=== PATIENT | female | born 1950 | race Caucasian/White ===

== ENCOUNTER 2022-10-28 15:53 | Emergency (ER) | payer OTHER ==
--- OUTSIDE RECORDS SUMMARY | 2022-10-28 15:58 | XMS REPORT | Continuity of Care Document ---
:1950 Author Organization [facility] t Address [address] [place] [address] [address] [place] [address] Care Team Providers Name Role Phone SANJANA HDEZ Primary Care Physician Unavailable CAIO JEFF Attending Clinician Unavailable JOHNSON VILLALPANDO Attending Clinician Unavailable Radiology Attending Clinician Unavailable RADIOLOGY Attending Clinician Unavailable Sanjana Hdez Attending Clinician Doctor Unassigned, [place] Attending Clinician Unavailable NOEMY BROOKE Attending Clinician Unavailable SANJANA HDEZ Admitting Clinician Unavailable THOMAS VILLALOBOS Admitting Clinician Unavailable Payers Payer Name Policy Type Policy Number Effective Date Expiration Date Melina hays [employer] MANAGED [id number] 2022 MEDICARE PPO-JACQUELINE 00:00:00 MEDICARE PART A [id number] 2014 \T\ B 00:00:00 [employer] INDEMNITY [id number] 2014 00:00:00 Problems This patient has no known problems. Allergies, Adverse Reactions, Alerts Allergy Allergy Status Severity Reaction(s) Onset Inactive Treating Comm ents Source Name Type Date Date Clinician NO KNOWN Drug Active Univers ALLERGIE Class [facility] [place] [facility] Social History Social Habit Start Date Stop Date Quantity Comments Source Exposure to 2022-05-29 2022-06-[address] [facility] SARS-CoV-2 (event) 00:00:00 14:32:00 Medica l Branch Sex Assigned At [birth year] [facility] 00:00:00 00:00:00 Medical Branch Smoking Status Start Date Stop Date Source Tobacco smoking consumption [facility] [place] [facility] unknown Branch Medications This patient has no known medications. Procedures Procedure Date / Time Performing Clinician Source Performed CT LOW DOSE LUNG NODULE 2022-06-06 17:30:57 Fredi Gar [facility] BI ULTRASOUND BREAST 2022-04-18 21:03:18 Adeel Burkett [facility] LIMITED RIGHT Medical Branch BI DIAGNOSTIC 2022-04-18 20:43:00 Madelaine Adeel [place] o [facility] TOMOSYNTHESIS RIGHT Medical Bran ch DEXA AXIAL (HIP AND SPINE) 2022-02-11 20:38:00 Requisition, Ruslan r [facility] CONSENT/REFUSAL FOR 2022-02-11 20:03:12 Doctor Juancarlos [facility] DIAGNOSIS AND TREATMENT [place] [facility] CT LUNG CANCER SCREENING 2021-06-18 17:16:25 Requisition, Paper [facility] NO SHOW OR MISSED 2021-06-18 16:21:55 Doctor Juancarlos, [facility] APPOINTMENT POLICY [place] [facility] h ACKNOWLEDGEMENT [facility] PATIENT FINANCIAL 2021-06-18 16:21:31 Doctor Unassnereida, [facility] POLICY [place] [facility] NOTICE OF BILLING 2021-06-18 16:21:07 Doctor Juancarlos, [facility] PRACTICES FOR MEDICARE [place] [facility] ranch PATIENTS NOTICE OF PRIVACY 2021-06-18 16:20:45 Doctor Juancarlos, [facility] PRACTICES [place] [facility] CONSENT/REFUSAL FOR 2021-06-18 16:20:28 Doctor Juancarlos, [facility] DIAGNOSIS AND TREATMENT [place] [facility] ASSIGNMENT OF BENEFITS 2021-06-18 16:20:08 Doctor Unassnereida, [facility] [place] [facility] Encounters Start End Encounter Admission Attending Care Care Encounter Source Date/Time Date/Time Type Type Clinicians Facility Department ID 2022-11-17 2022-11-17 Outpatient Annemarie VILLALPANDO [facility] [id number] 208 [facility] 10:00:00 10:00:00 JOHNSON bustamante o f [facility] 2022-10-13 2022-10-13 Hospital Radiology [facility] [id number] Univers 13:53:39 23:59:00 Encounter HE[place] [id number] [id number] [id number] [facility] [address] ([facility]) 2022-10-13 2022-10-13 Outpatient R RADIOLOGY [facility] [id number] Univers 13:53:39 23:59:00 ity of [facility] 2022-06-12 2022-06-12 Outpatient R RADIOLOGY [facility] [id number] Univers 09:27:19 23:59:00 ity of [facility] 2022-06-12 2022-06-12 Hospital Radiology [facility] [id number] [id number] Univers 09:27:19 23:59:00 Encounter SPECIALTY [id number] [id number] [id number] [place] edelmira [address] 2022-06-06 2022-06-06 Outpatient R RADIOLOGY [facility] [id number] Univers 11:04:33 23:59:00 ity of [facility] 2022-06-06 2022-06-06 Hospital Radiology [facility] 1.2.840.114 [id number] Univers 11:04:33 23:59:00 Encounter SPECIALTY [id number] [id number] [id number] [place] ed[place] [address] 2022-05-31 2022-05-31 Outpatient R RADIOLOGY [facility] [id number] Univers 00:00:00 00:00:00 ity of [facility] 2022-05-20 2022-05-20 Telephone DEMETRIO Hdez [id number] Univers 00:00:00 00:00:00 Sanjana SPARKS [id number] [id number] [id number] [place] [address] Branch 2022-05-17 2022-05-17 Outpatient R RADIOLOGY [facility] [id number] Univers 00:00:00 00:00:00 ity of [facility] 2022-04-18 2022-04-18 Hospital Radiology [facility] [id number] Univers 14:02:44 23:59:00 Encounter SPECIALTY [id number] ity of CARE [id number] [facility] AT [id number] Nj edelmira [address] [place] 2022-04-18 2022-04-18 Outpatient R RADIOLOGY [facility] [id number] Univers 14:02:27 23:59:00 ity of [facility] 2022-04-18 2022-04-18 [facility] Radiology [facility] [id number] Univers 14:02:27 23:59:00 Encounter SPECIALTY [id number] ity of CARE [id number] [facility] AT [id number] Nj edelmira Anderson [facility] 2022-03-01 2022-03-01 Outpatient R RADIOLOGY [facility] RAD [id number] Univers 08:25:07 23:59:00 ity of [facility] 2022-03-01 2022-03-01 [facility] Radiology [facility] [id number] Univers 08:25:07 23:59:00 Encounter [place] [id number] ity of [place] 4.2.7.2.686 [facility] [id number] [facility] [address] [place] 2022-02-11 2022-02-11 Outpatient R RADIOLOGY [facility] [id number] Univers 15:04:31 23:59:00 ity of [facility] 2022-02-11 2022-02-11 Hospital Radiology [facility] [id number] [id number] Univers 15:04:31 23:59:00 Encounter [place] [id number] ity of [place] 4.2.7.2.686 [facility] [id number] [facility] [address] [place] 2022-02-11 2022-02-11 Orders Doctor FATIMA [id number] [id number] Univers 00:00:00 00:00:00 Only Unassigned, [place]OW[place] [id number] ity of [place] [facility] 4.2.7.2.686 Kumar [id number] [address] 2021-12-13 2021-12-13 Outpatient R RADIOLOGY [facility] [id number] Univers 08:11:05 23:59:00 ity of [facility] 2021-12-13 2021-12-13 [facility] Radiology [facility] 1.2.840.114 [id number] Univers 08:11:05 23:59:00 Encounter [place] [id number] [facility] 4.2.7.2.686 [facility] [id number] [place] [address] Branch 2021-11-11 2021-11-11 Outpatient EDWARDO, [address] 06:28:00 09:40:00 NOEMY 2021-06-18 2021-06-18 Outpatient R RADIOLOGY [facility] [id number] Univers 10:28:13 23:59:00 ity of [facility] 2021-06-18 2021-06-18 [facility] Radiology [facility] 1.2.840.114 [id number] Univers 10:28:13 23:59:00 Encounter [place] [id number] [facility] 4.2.7.2.686 [facility] [id number] [address] Results This patient has no known results.
--- NOTE | 2022-10-28 16:40 | RAD REPORT ---
EXAM DESCRIPTION: RAD - Shoulder Right 2 View - 10/28/2022 4:30 pm CLINICAL HISTORY: Right shoulder pain FINDINGS: No fracture or dislocation is seen. Moderate osteoarthritis AC joint. Mild osteoarthritis glenohumeral joint
--- NOTE | 2022-10-28 16:46 | ER ---
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 Coronavirus screen: At bp this time, the client does not indicate any symptoms associated with coronavirus-19. Ebola Screen: No symptoms or risks identified at this time. Initial Sepsis Screen: Does the patient meet any 2 criteria? No. Patient's initial sepsis screen is negative. Does the patient have a suspected source of infection? No. Patient's initial sepsis screen is negative. Risk Assessment: Do you want to hurt yourself or someone else? Patient reports no desire to harm self or others. Onset of symptoms was October 28, 2022 at 15:00. 16:01 Method Of Arrival: Ambulatory bp 16:01 Acuity: NELSY 3 bp Triage Assessment: 16:03 General: Appears in no apparent distress. Behavior is calm, cooperative, appropriate bp for age. Pain: Complains of pain in anterior aspect of right shoulder. EENT: No deficits noted. Neuro: No deficits noted. Cardiovascular: No deficits noted. Respiratory: No deficits noted. GI: No signs and/or symptoms were reported involving the gastrointestinal system. : No signs and/or symptoms were reported regarding the genitourinary system. Derm: No deficits noted. Musculoskeletal: Reports pain in right shoulder and anterior aspect of right shoulder. Injury Description: Deformity sustained to right shoulder. 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 - Social history:: Smoking status: Patient denies any tobacco usage or history of. Screenin:05 [facility] ED Fall Risk Assessment (Adult) History of falling in the last 3 months, bp including since admission No falls in past 3 months (0 pts). Abuse screen: Denies threats or abuse. Denies injuries from another. Nutritional screening: No deficits noted. Tuberculosis screening: No symptoms or risk factors identified. Vital Signs: 16:01 BP 134 / 47; Pulse 63; Resp 16; Temp 98; Pulse Ox 98% ; bp ED Course: 15:56 Patient arrived in ED. rg4 15:56 Latoya Choi FNP-C is [facility]. kb 15:56 Nain Taylor DO is Attending Physician. kb 16:03 Triage completed. bp 16:03 Arm band placed on. bp 16:05 Patient has correct armband on for positive identification. bp 16:09 Brandon Yan, RN is Primary Nurse. bp 16:31 Shoulder Right (2 View) XRAY In Process Unspecified. EDMS 16:45 Patrick Garcia MD is Referral Physician. kb 17:02 No provider procedures requiring assistance completed. Patient did not have IV access ld1 during this emergency room visit. Administered Medications: No medications were administered Medication: 17:03 VIS not applicable for this client. ld1 Outcome: 16:46 Discharge ordered by MD. kb 17:02 Discharged to home ambulatory. ld1 17:02 Condition: stable 17:02 Discharge instructions given to patient, Instructed on discharge instructions, follow up and referral plans. Demonstrated understanding of instructions, follow-up care. 17:03 Patient left the ED. ld1 Signatures: Dispatcher [employer] EDMN Latoya Choi FNP-C FNP-Leana Keenan rg4 Brandon Yan, RN RN bp Arlette Taylor, DANAY RN ld1
--- NOTE | 2022-10-28 16:46 | EDPHYS ---
Physician Documentation [facility] Name: Bryanna Flores Age: 72 yrs Sex: Female : 1950 Arrival Date: 10/28/2022 Time: 15:53 Bed 4 Private MD: ED Physician Nain Taylor HPI: 10/28 16:03 This 72 yrs old Female presents to ER via Ambulatory with complaints of Shoulder Injury.kb 16:03 The patient or guardian complains of decreased range of motion, pain, tenderness. right kb shoulder. Context: The problem was sustained at home, The patient experiences decreased range of motion, The patient reports no obvious deformity. Onset: The symptoms/episode began/occurred 1 hour(s) ago. Modifying factors: the symptoms are alleviated by nothing. The symptoms are aggravated by movement. Associated signs and symptoms: The patient has no apparent associated signs or symptoms. Severity of symptoms: At their worst the symptoms were moderate, in the emergency department the symptoms are unchanged. 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 The patient has not experienced similar symptoms in the past. The patient has not recently seen a physician. 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 States she had her kb reduce it, but is concerned about a fracture.. 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 - Social history:: Smoking status: Patient denies any tobacco usage or history of. ROS: 16:02 Constitutional: Negative for fever, chills, and weight loss. kb 16:02 MS/extremity: Positive for decreased range of motion, pain, tenderness, of the anterior aspect of right shoulder. 16:02 All other systems are negative. Exam: 16:02 Constitutional: This is a well developed, well nourished patient who is awake, alert, kb and in no acute distress. Head/Face: Normocephalic, atraumatic. ENT: Moist Mucous membranes Cardiovascular: Regular rate and rhythm with a normal S1 and S2. No gallops, murmurs, or rubs. No pulse deficits. Respiratory: Respirations even and unlabored. No increased work of breathing. Talking in full sentences Abdomen/GI: Soft, non-tender. No distention Skin: Warm, dry with normal turgor. Normal color. Neuro: Awake and alert, GCS 15, oriented to person, place, time, and situation. Moves all extremities. Normal gait. 16:02 Musculoskeletal/extremity: Extremities: grossly normal except: noted in the anterior aspect of right shoulder: decreased ROM, pain, swelling, tenderness, ROM: limited active range of motion, Circulation is intact in all extremities. Sensation intact. Vital Signs: 16:01 BP 134 / 47; Pulse 63; Resp 16; Temp 98; Pulse Ox 98% ; bp MDM: 15:56 Patient medically screened. kb 16:03 Differential diagnosis: Anterior dislocation with fracture, Anterior dislocation kb without fracture, Posterior dislocation with fracture, Posterior dislocation without fracture, humeral head fracture. Data reviewed: vital signs, nurses notes. 16:45 Counseling: I had a detailed discussion with the patient and/or guardian regarding: the kb historical points, exam findings, and any diagnostic results supporting the discharge/admit diagnosis, radiology results, the need for outpatient follow up, a orthopedic surgeon, to return to the emergency department if symptoms worsen or persist or if there are any questions or concerns that arise at home. 10/28 16:02 Order name: Shoulder Right (2 View) XRAY; Complete Time: 16:43 kb 10/28 16:02 Order name: Sling; Complete Time: 16:40 kb Administered Medications: No medications were administered Disposition: 18:06 Co-signature as Attending Physician, Nain AMEZCUA was immediately available on-site ms3 in the Emergency Department for consultation in the care of the patient. Disposition Summary: 10/28/22 16:46 Discharge Ordered Location: Home kb Condition: Stable kb Diagnosis - Pain in right shoulder kb Followup: kb - With: Emergency Department - When: As needed - Reason: Worsening of condition Followup: kb - With: Private Physician - When: 2 - 3 days - Reason: Recheck today's complaints, Continuance of care, Re-evaluation by your physician Followup: kb - With: Patrick Garcia MD - When: 2 - 3 days - Reason: Recheck today's complaints Discharge Instructions: - Discharge Summary Sheet kb - Musculoskeletal Pain kb - Shoulder Pain, Fwue-ln-Bors kb Forms: - Medication Reconciliation Form kb - Thank You Letter kb - Antibiotic Education kb - Prescription Opioid Use kb - [email or web address] kb Signatures: Dispatcher [employer] Latoya Velazquez FNP-C FNP-Ckb Peltier, Brian, RN RN Nain Hardwick, DO ms3
[2022-10-28 17:11] VITALS: BP 134/47; TEMP 98; O2SAT 98
== END 2022-10-28 17:03 | disposition home or self-care (01) ==
LOC: ER 15:53
DX: M25.511 Pain in right shoulder (principal)
CPT/HCPCS: 99283

== ENCOUNTER 2023-09-01 20:07 | Emergency (ER) | payer OTHER ==
--- NOTE | 2023-09-01 21:45 | RAD REPORT ---
EXAM DESCRIPTION: US - Extremity Venous Uni Ltd - 09/01/2023 9:38 pm CLINICAL HISTORY: Calf pain right COMPARISON: None. TECHNIQUE: Real-time sonographic evaluation of the right lower extremity deep venous system was perf ormed. FINDINGS: Normal compressibility, flow augmentation, phasic flow and spontaneous flow is identified in the right lower extremity deep venous system. No intraluminal filling defects seen. Popliteal fossa cyst measuring 3.4 x 0.5 cm. IMPRESSION: No DVT in the right lower extremity. Popliteal fossa cyst identified.
--- NOTE | 2023-09-01 21:46 | RAD REPORT ---
EXAM DESCRIPTION: US - Lower Extremity Artery Uni Ltd - 09/01/2023 9:38 pm CLINICAL HISTORY: Calf pain, right COMPARISON: None FINDINGS: Color Doppler, grayscale, and spectral analysis was performed. The common femoral, superficial femoral and popliteal arteries demonstrate triphasic waveforms The posterior tibial and dorsalis pedis arteries demonstrate biphasic and triphasic waveforms, respec tively. IMPRESSION: No hemodynamically significant arterial stenosis in the right lower extremity.
[2023-09-01 21:55] LABS: Absolute Basophils 0.1 K/uL (0-0.5); Absolute Eosinophils 0.5 K/uL (0-0.5); Absolute Lymphocytes (CBC) 1.9 K/uL (0.7-4.9); Absolute Monocytes 1.1 K/uL (0.1-1.3); Absolute Neutrophil 6.5 K/uL (1.8-8.0); Basophils % 1.3 % (0-1.3); Eosinophils % 5.1 % (0-4.4); Hematocrit 43.1 % (36.0-45.0); Hemoglobin 14.5 g/dL (12.0-15.0); Lymphocytes % 18.8 % (15.3-44.8); MCH 28.7 pg (27.0-35.0); MCHC 33.6 g/dL (32.0-36.0); MCV 85.6 fL (80-100); Neutrophils % 63.8 % (41.7-73.7); Nucleated Red Blood Cells % 0.2 % (0-0); Platelets 289 thou/uL (152-406); RBC Red Blood Cell Count 5.04 M/uL (3.86-4.86)
[2023-09-01 22:01] LABS: PT Prothrombin Time 12.8 SECONDS (9.5-12.5); Protime INR 1.17
[2023-09-01] MEDS ORDERED: KETOROLAC 30 MG/ML INJ ONE (22:03)
[2023-09-01] MEDS ORDERED: NA CHLORIDE 0.9% 500 ML ONE (22:03)
--- NOTE | 2023-09-01 22:09 | RAD REPORT ---
EXAM DESCRIPTION: RAD - Tib Fib Right - 09/01/2023 9:54 pm CLINICAL HISTORY: PAIN COMPARISON: No comparisons FINDINGS/IMPRESSION: No acute fracture. No malalignment. 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
[2023-09-01 22:14] LABS: Albumin 3.4 g/dL (3.4-5.0); Anion Gap 5.7 mEq/L (5.0-15.0); Bilirubin Total 0.5 mg/dL (0.2-1.0); C-Reactive Protein 3.14 mg/L (<3.00); Globulin 3.5 g/dL (2.3-3.5); Potassium 2.7 mEq/L (3.5-5.1); Protein, Total 6.9 g/dL (6.4-8.2)
[2023-09-01] MEDS ORDERED: DOXYCYCLINE 100 MG CAP PO ONE (23:07)
[2023-09-01] MEDS ORDERED: POTASSIUM 25 MEQ EFFERV TAB ONE (23:08)
--- NOTE | 2023-09-01 23:25 | EDPHYS ---
Physician Documentation [facility] Name: Bryanna Flores Age: 73 yrs Sex: Female : 1950 Arrival Date: 09/01/2023 Time: 20:07 Bed 17 Private MD: ED Physician Sincere Funes HPI: 08/31 21:15 This 73 yrs old Female presents to ER via Ambulatory with complaints of Leg Pain, Leg cp Swelling, FEVER/REDNESS TO RT LEG. 21:15 The patient presents with pain, that is acute, swelling, tenderness, redness. The cp complaints affect the right yao and anterior aspect of right ankle. Context: resulted from an unknown cause, the patient can fully bear weight, the patient is able to ambulate, with mild difficulty, Problem is a result from a previous injury: No. 21:15 Onset: The symptoms/episode began/occurred this morning. Associated signs and symptoms: cp Pertinent positives: warmth, Pertinent negatives fever. Treatment prior to arrival includes: no previous treatment. 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 - Infectious Disease History:: Denies. - Social history:: Smoking status: Patient denies any tobacco usage or history of. Patient/guardian denies using alcohol, street drugs. ROS: 21:20 Constitutional: Negative for body aches, chills, fever, poor PO intake, cp 21:20 Back: Negative for pain at rest, pain with movement, cp 21:20 MS/extremity: Positive for erythema, pain, swelling, tenderness, of the anterior aspect of right ankle and right yao, Negative for injury or acute deformity, paresthesias, 21:20 Neuro: Negative for altered mental status, dizziness, headache, weakness, 21:20 All other systems are negative, Exam: 21:25 Constitutional: The patient appears in no acute distress, alert, awake, non-toxic, well cp developed, well nourished, 21:25 Head/Face: Normocephalic, atraumatic. cp 21:25 Eyes: Periorbital structures: appear normal, Conjunctiva: normal, no exudate, no injection, Sclera: no appreciated abnormality, Lids and lashes: appear normal, bilaterally, 21:25 ENT: External ear(s): are unremarkable, Nose: is normal, Mouth: Lips: moist, Oral mucosa: pink and intact, moist, Posterior pharynx: is normal, airway is patent, 21:25 Chest/axilla: Inspection: normal, 21:25 Cardiovascular: Rate: normal, Rhythm: regular, 21:25 Respiratory: the patient does not display signs of respiratory distress, Respirations: normal, no use of accessory muscles, no retractions, Breath sounds: are clear throughout, no decreased breath sounds, no stridor, no wheezing, 21:25 Abdomen/GI: Inspection: abdomen appears normal, 21:25 Back: pain, is absent, ROM is normal, 21:25 Musculoskeletal/extremity: Extremities: grossly normal except: noted in the right yao and anterior aspect of right ankle: erythema, warmth, mild swelling, skin intact, There is no evidence of decreased ROM, deformity, ROM: limited active range of motion due to pain, in the right ankle, Pulses: noted to be 2+ in the right dorsalis pedis artery, Vital Signs: 20:33 BP 124 / 79; Pulse 67; Resp 16; Temp 99.1(O); Pulse Ox 100% on R/A; Weight 68.04 kg 8 (R); Height 5 ft. 4 in. (R); Pain 8/10; 21:57 BP 121 / 72; Pulse 54; Resp 16 S; Pulse Ox 99% on R/A; lg3 23:18 BP 117 / 56; Pulse 55; Resp 17 S; Temp 98.8(O); Pulse Ox 99% on R/A; lg3 20:33 Body Mass Index 25.75 (68.04 kg, 162.56 cm) 8 20:33 Pain Scale: Adult km8 MDM: 20:39 Patient medically screened. cp 23:25 Data reviewed: vital signs, nurses notes, lab test result(s), radiologic studies, plain cp films, ultrasound, and as a result, I will discharge patient. 23:25 Differential diagnosis: closed fracture, contusion, abscess, cellulitis, dvt, PAD. cp Counseling: I had a detailed discussion with the patient and/or guardian regarding the historical points, exam findings, and any diagnostic results supporting the discharge/admit diagnosis, lab results, the need for outpatient follow up, an construction equipment mechanic helper, to return to the emergency department if symptoms worsen or persist or if there are any questions or concerns that arise at home. Response to treatment: the patient's symptoms have markedly improved after treatment, and as a result, I will discharge patient. 08/31 21:05 Order name: CBC with Diff; Complete Time: 22:53 cp 08/31 22:53 Interpretation: Normal except: RBC 5.04; EOSINOPHIL % 5.1. cp 08/31 21:05 Order name: CMP; Complete Time: 22:53 cp 03 22:54 Interpretation: Normal except: K 2.7; CO2 34; BUN 24; CRE 1.45; GFR 38; ALK 119; A/G cp 1.0. 08/31 21:05 Order name: Lactate w/ 2H reflex if indic.; Complete Time: 22:53 cp 08/31 21:05 Order name: Protime (+inr); Complete Time: 22:53 cp 08/31 22:54 Interpretation: Reviewed. cp 08/31 21:05 Order name: CRP; Complete Time: 22:53 cp 08/31 21:57 Order name: Glucose, Ancillary Testing; Complete Time: 22:53 EDMS 08/31 21:05 Order name: LE Artery Uni Ltd; Complete Time: 22:53 cp 03 22:54 Interpretation: Report reviewed. cp 08/31 21:05 Order name: Extremity Venous Unilateral Ltd; Complete Time: 22:53 cp 08/31 21:05 Order name: XRAY Tib Fib RIGHT; Complete Time: 22:53 cp 08/31 21:05 Order name: Accucheck; Complete Time: 22:00 cp 03 21:05 Order name: Cardiac monitoring; Complete Time: 22:00 cp 03 21:05 Order name: IV Saline Lock - Large Bore; Complete Time: 22:00 cp 08/31 21:05 Order name: Labs collected and sent; Complete Time: 22:00 cp 03 21:05 Order name: O2 Per Protocol; Complete Time: 22:00 cp 03 21:05 Order name: O2 Sat Monitoring; Complete Time: 22:00 cp 03 21:05 Order name: Vital Signs; Complete Time: 22:00 cp Administered Medications: 22:14 Drug: Ketorolac IVP 15 mg IVP once Route: IVP; Site: right antecubital; 3 09/01 00:07 Follow up: Response: No adverse reaction; Marked relief of symptoms 3 08/31 22:14 Drug: NS 0.9% IV 500 ml IV at 100 ml/hr continuous Route: IV; Rate: 100 ml/hr; Site: lg3 right antecubital; 23:12 Drug: Potassium PO Effervescent Tablet 50 mEq PO once; dissolve in 4 ounces of water or lg3 juice Route: PO; 09/01 00:07 Follow up: Response: No adverse reaction 3 08/31 23:12 Drug: Potassium PO Effervescent Tablet 25 mEq PO once; dissolve in 4 ounces of water or lg3 juice Route: PO; 09/01 00:06 Follow up: Response: No adverse reaction 3 08/31 23:12 Drug: Doxycycline PO 100 mg PO once Route: PO; 3 09/01 00:06 Follow up: Response: No adverse reaction 3 Disposition Summary: 09/01/23 23:25 Discharge Ordered Notes: Location: Home cp Problem: new cp Symptoms: have improved cp Condition: Stable cp Diagnosis - Cellulitis of right lower limb cp - Hypokalemia cp Followup: cp - With: Private Physician - When: 2 - 3 days - Reason: Recheck today's complaints Discharge Instructions: - Discharge Summary Sheet cp - Cellulitis, Adult cp - Potassium Content of Foods cp - Hypokalemia cp Forms: - Medication Reconciliation Form cp - Antibiotic Education cp - Prescription Opioid Use cp - Patient Portal Instructions cp - Leadership Thank You Letter cp Prescriptions: - Mobic 7.5 mg Oral Tablet - take 1 tablet ORAL route once daily take with food; 20 tablet; Refills: 0, cp Product Selection Permitted - Potassium Chloride 10 mEq Oral capsule, extended release - take 2 tablet ORAL route once daily for 3 days; 6 tablet; Refills: 0, Product cp Selection Permitted - Doxycycline Hyclate 100 mg Oral Tablet - take 1 tablet ORAL route every 12 hours; 20 tablet; Refills: 0, Product cp Selection Permitted Signatures: Dispatcher [employer] EDAR Sincere Esquivel PA PA cp Able, Lacie, RN RN lg3 Leida Lira RN RN km8
--- NOTE | 2023-09-01 23:25 | ER ---
Nurse's Notes [facility] Name: Bryanna Flores Age: 73 yrs Sex: Female : 1950 Arrival Date: 09/01/2023 Time: 20:07 Bed 17 Private MD: Diagnosis: Cellulitis of right lower limb;Hypokalemia Presentation: 08/31 20:33 Chief complaint: Patient states: redness, swelling, warm to touch on right lower leg km8 starting today; denies fever. Coronavirus screen: Client denies travel out of the [place] in the last 14 days. Ebola Screen: No symptoms or risks identified at this time. Initial Sepsis Screen: Does the patient meet any 2 criteria? No. Patient's initial sepsis screen is negative. Does the patient have a suspected source of infection? No. Patient's initial sepsis screen is negative. Risk Assessment: Do you want to hurt yourself or someone else? Patient reports no desire to harm self or others. Onset of symptoms was September 01, 2023. 20:33 Method Of Arrival: Ambulatory km8 20:33 Acuity: NELSY 3 km8 Triage Assessment: 20:35 General: Appears in no apparent distress. uncomfortable, Behavior is calm, cooperative, km8 appropriate for age. Pain: Complains of pain in anterior aspect of right ankle Pain currently is 8 out of 10 on a pain scale. Quality of pain is described as aching, dull. EENT: No signs and/or symptoms were reported regarding the EENT system. Neuro: Level of Consciousness is awake, alert, obeys commands, Oriented to person, place, time, situation. Cardiovascular: Denies chest pain, shortness of breath, Patient's skin is warm and dry. Respiratory: Airway is patent Respiratory effort is even, unlabored, Respiratory pattern is regular, symmetrical. GI: No signs and/or symptoms were reported involving the gastrointestinal system. : No signs and/or symptoms were reported regarding the genitourinary system. Derm: Skin is intact, is healthy with good turgor, Skin is dry, Skin is pink, warm \T\ dry. normal, Skin temperature is warm redness, swelling to RLE. Musculoskeletal: Range of motion: intact in all extremities. 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 - Infectious Disease History:: Denies. - Social history:: Smoking status: Patient denies any tobacco usage or history of. Patient/guardian denies using alcohol, street drugs. Screenin:57 [facility] ED Fall Risk Assessment (Adult) History of falling in the last 3 months, lg3 including since admission No falls in past 3 months (0 pts) Confusion or Disorientation No (0 pts) Intoxicated or Sedated No (0 pts) Impaired Gait No (0 pts) Mobility Assist Device Used No (0 pt) Altered Elimination No (0 pt) Score/Fall Risk Level 0 - 2 = Low Risk Oriented to surroundings, Maintained a safe environment, Educated pt \T\ family on fall prevention, incl call for assistance when getting out of bed, Assessed \T\ reinforced patient's understanding of fall precautions. Abuse screen: Denies threats or abuse. Denies injuries from another. Nutritional screening: No deficits noted. Tuberculosis screening: No symptoms or risk factors identified. Assessment: 21:57 General: Appears in no apparent distress. comfortable, Behavior is calm, cooperative. lg3 Pain: Complains of pain in right yao and anterior aspect of right ankle Pain does not radiate. Neuro: No deficits noted. Millard Agitation-Sedation Scale (RASS): 0 - Alert and Calm Level of Consciousness is awake, alert, obeys commands, Oriented to person, place, time, situation. Cardiovascular: No deficits noted. Denies chest pain, shortness of breath, Capillary refill < 3 seconds Clubbing of nail beds is absent JVD is absent Patient's skin is warm and dry. Respiratory: No deficits noted. Airway is patent Respiratory effort is even, unlabored, Respiratory pattern is regular, symmetrical, Breath sounds are clear bilaterally. GI: No deficits noted. No signs and/or symptoms were reported involving the gastrointestinal system. Abdomen is round non-distended. : No deficits noted. No signs and/or symptoms were reported regarding the genitourinary system. EENT: No deficits noted. No signs and/or symptoms were reported regarding the EENT system. Derm: Skin is intact, is healthy with good turgor, Skin is dry, Skin is normal, Skin temperature is warm redness and swelling noted to right yao. Musculoskeletal: No deficits noted. Circulation, motion, and sensation intact. Range of motion: intact in all extremities, Swelling present in right yao. 23:18 Reassessment: Patient appears in no apparent distress at this time. No changes from lg3 previously documented assessment. Patient and/or family updated on plan of care and expected duration. Pain level reassessed. Patient is alert, oriented x 3, equal unlabored respirations, skin warm/dry/pink. 09/01 00:08 Reassessment: Patient appears in no apparent distress at this time. No changes from lg3 previously documented assessment. Patient and/or family updated on plan of care and expected duration. Pain level reassessed. Patient is alert, oriented x 3, equal unlabored respirations, skin warm/dry/pink. Vital Signs: 08/31 20:33 BP 124 / 79; Pulse 67; Resp 16; Temp 99.1(O); Pulse Ox 100% on R/A; Weight 68.04 kg km8 (R); Height 5 ft. 4 in. (R); Pain 8/10; 21:57 BP 121 / 72; Pulse 54; Resp 16 S; Pulse Ox 99% on R/A; lg3 23:18 BP 117 / 56; Pulse 55; Resp 17 S; Temp 98.8(O); Pulse Ox 99% on R/A; lg3 20:33 Body Mass Index 25.75 (68.04 kg, 162.56 cm) km8 20:33 Pain Scale: Adult km ED Course: 20:10 Patient arrived in ED. [id number] 20:16 Sincere Esquivel PA is PHCP. cp 20:16 Sincere Funes MD is Attending Physician. cp 20:35 Triage completed. km8 20:35 Arm band placed on right wrist. km8 21:40 US LE Artery Uni Ltd In Process Unspecified. EDMS 21:40 US Extremity Venous Unilateral Ltd In Process Unspecified. EDMS 21:56 XRAY Tib Fib RIGHT In Process Unspecified. EDMS 21:57 Stefanie Nails, RN is Primary Nurse. lg3 21:57 Patient has correct armband on for positive identification. Placed in gown. Bed in low lg3 position. Call light in reach. Side rails up X 1. Client placed on continuous cardiac and pulse oximetry monitoring. NIBP monitoring applied. Door closed. Noise minimized. Warm blanket given. 21:57 Inserted saline lock: 22 gauge in right antecubital area, using aseptic technique. lg3 Blood collected. 09/01 00:08 No provider procedures requiring assistance completed. IV discontinued, intact, lg3 bleeding controlled, No redness/swelling at site. Pressure dressing applied. Administered Medications: 08/31 22:14 Drug: Ketorolac IVP 15 mg IVP once Route: IVP; Site: right antecubital; 3 09/01 00:07 Follow up: Response: No adverse reaction; Marked relief of symptoms 3 08/31 22:14 Drug: NS 0.9% IV 500 ml IV at 100 ml/hr continuous Route: IV; Rate: 100 ml/hr; Site: lg3 right antecubital; 23:12 Drug: Potassium PO Effervescent Tablet 50 mEq PO once; dissolve in 4 ounces of water or lg3 juice Route: PO; 09/01 00:07 Follow up: Response: No adverse reaction [facility] 08/31 23:12 Drug: Potassium PO Effervescent Tablet 25 mEq PO once; dissolve in 4 ounces of water or lg3 juice Route: PO; 09/01 00:06 Follow up: Response: No adverse reaction 3 08/31 23:12 Drug: Doxycycline PO 100 mg PO once Route: PO; 3 09/01 00:06 Follow up: Response: No adverse reaction lg3 Medication: 00:08 VIS not applicable for this client. lg3 Outcome: 08/31 23:25 Discharge ordered by MD. yang 09/01 00:08 Discharged to home ambulatory, lg3 Condition: stable Discharge instructions given to patient, Instructed on discharge instructions, follow up and referral plans. medication usage, Demonstrated understanding of instructions, follow-up care, medications, Prescriptions given X 3, 00:08 Patient left the ED. lg3 Signatures: Dispatcher [employer] EDMS Sincere Esquivel PA PA cp Able, Lacie, RN RN lg3 Teri Schmitt [email or web address] Leida Lira RN RN km8
[2023-09-02 15:00] VITALS: BP 117/56; TEMP 98.8; O2SAT 99
== END 2023-09-02 00:08 | disposition home or self-care (01) ==
LOC: ER 20:07
DX: L03.115 Cellulitis of right lower limb (principal); E87.6 Hypokalemia
CPT/HCPCS: 85025; 36415; 85610; 82947; 83605; 80053; 86140; 73590; 93926; 93971; 96374; 99284; J7040